=== PATIENT | male | born 1955 | race Two or more races ===

== ENCOUNTER 2025-01-02 21:21 | Inpatient (IN) | payer OTHER ==
[~2025-01-02] VITALS: Ht 182.9 cm; Wt 105.5 kg
--- NOTE | 2025-01-02 21:35 | ED.PDOC ---
Altered Mental Status HPI Comments 69-year-old male who came to ER via EMS for altered level of consciousness. Per EMS, patient picked up at home, wherein patient was noted by family members to have locked himself in the bathroom for over 3 hours. Upon arrival paramedics, patient was sitting on the toilet, slightly confused and disoriented, slightly combative when approached. Patient is febrile upon arrival to 103 F. He does have history of bladder cancer in recurrent UTIs Chief Complaint: ALOC Time Seen by MD: 21:34 Reviewed Notes: Rehabilitation Nurse Notes Allergies: Uncoded Allergies: nkda (Allergy, Unknown, 01/03/25) Information Source: Patient, Emergency Med Personnel Mode of Arrival: EMS Severity: Unable to Care for Self Timing: Hours Duration: Since onset Quality: Decreased Alertness, Change in Behavior, Confusion Recent: Fever History of: Other (Bladder Cancer) Past Medical History PAST MEDICAL HISTORY: Cancer, High Lipids, UTI'S Past Medical History (Other): Bladder cancer Surgical History (Other): Abdominal surgery, right arm surgery Family History Family History: Reviewed,noncontributory to illness Social History Smoker: Non-Smoker Alcohol: Denies ETOH Use Drugs: Denies Drug Use Lives In: Home Constitutional: denies: chills, diaphoresis, fatigue, fever, malaise, sweats, weakness, others EENTM: denies: blurred vision, double vision, ear bleeding, ear discharge, ear drainage, ear pain, ear ringing, eye pain, eye redness, hearing loss, mouth pain, mouth swelling, nasal discharge, nose bleeding, nose congestion, nose pain, photophobia, tearing, throat pain, throat swelling, voice changes, others Respiratory: denies: cough, hemoptysis, orthopnea, SOB at rest, shortness of breath, SOB with excertion, stridor, wheezing, others Cardiovascular: denies: chest pain, dizzy spells, diaphoresis, Dyspnea on exertion, edema, irregular heart beat, left arm pain, lightheadedness, palpitations, PND, syncope, others Gastrointestinal: denies: abdomen distended, abdominal pain, blood streaked bowels, constipated, diarrhea, dysphagia, difficulty swallowing, hematemesis, melena, nausea, poor appetite, poor fluid intake, rectal bleeding, rectal pain, vomiting, others Genitourinary: denies: burning, dysuria, flank pain, frequency, hematuria, incontinence, penile discharge, penile sore, pain, testicle pain, testicle swelling, urgency, others Neurological: denies: dizziness, fainting, headache, left sided numbness, left sided weakness, numbness, paresthesia, pre-existing deficit, right sided n umbness, right sided weakness, seizure, speech problems, tingling, tremors, weakness, others Musculoskeletal: denies: back pain, gout, joint pain, joint swelling, muscle pain, muscle stiffness, neck pain, others Integumetry: denies: bruises, change in color, change in hair/nails, dryness, laceration, lesions, lumps, rash, wounds, others Allergic/Immunocompromised: denies: Difficulty Healing, Frequent Infections, Hives, Itching, others Hematologic/Lymphatic: denies: anemia, blood clots, easy bleeding, easy bruising, swollen glands, others Endocrine: denies: excessive hunger, excessive sweating, excessive thirst, excessive urination, flushing, intolerance to cold, intolerance to heat, unexplained weight gain, unexplained weight loss, others Psychiatric: denies: anxiety, bipolar disorder, depression, hopeless, panic disorder, schizophrenia, sleepless, suicidal, others Unable to Obtain due to: Altered Mental Status Physical Exam General Appearance: No Apparent Distress, Normal HEENT: Normal ENT Inspection, Pharynx Normal, TMs Normal Neck: Full Range of Motion, Non-Tender, Normal, Normal Inspection Respiratory: Chest Non-Tender, Lungs Clear, No Accessory Muscle Use, No Respiratory Distress, Normal Breath Sounds Cardiovascular: No Edema, No JVD, No Murmur, No Gallop, Normal Peripheral Pulses, Regular Rate/Rhythm Breast Exam: Deferred Gastrointestinal: No Organomegaly, Non Tender, No Pulsatile Mass, Normal Bowel Sounds, Soft Genitalia: Deferred Pelvic: Deferred Rectal: Deferred Extremities: No calf tenderness, Normal capillary refill, Normal inspection, Normal range of motion, Non-tender, No pedal edema Musculoskeletal : Apperance: Normal Neurologic: Alert, fund accountant II-XII nml as Tested, No Motor Deficits, Normal Affect, Normal Mood, No Sensory Deficits Cerebellar Function: Normal Reflexes: Normal Skin: Dry, Normal Color, Warm Lymphatic: No Adenopathy Was a procedure done? Was a procedure done?: No Differential Diagnosis (ALOC) Differential Diagnosis: Dehydration, Hypoglycemia, Encephalopathy, Sepsis, Hypoxemia, Renal Failure X-Ray, Labs, Meds, VS Vital Signs Date Time Temp Pulse Resp B/P (MAP) Pulse Ox O2 Delivery O2 Flow Rate FiO2 01/03/25 01:38 98.2 96 20 97/68 (78) 98 98.2 01/03/25 00:45 88 20 120/88 01/02/25 22:35 101.4 101.4 01/02/25 22:29 98.1 73 20 136/77 (96) 96 98.1 01/02/25 22:16 117 20 91 Nasal Cannula* 2 28 01/02/25 22:16 98.1 118 20 109/68 (82) 93 98.1 01/02/25 22:10 119 01/02/25 21:30 103.1 121 20 123/65 94 103.1 Lab Test 01/03/25 00:44 01/03/25 00:10 01/02/25 23:40 01/02/25 22:40 Range/Units Lactic Acid Level 2.2 *H 2.8 *H 0.4-2.0 mmol/L Influenza Type A Antigen Negative Negative Influenza Type B Antigen Negative Negative SARS-CoV-2 Antigen (Rapid) Negative NEGATIVE Troponin I High Sensitivity 33 18 </=54 ng/L White Blood Count 16.5 H 4.4-10.8 10^3/uL Red Blood Count 4.85 4.5-5.90 10^6/uL Hemoglobin 13.3 L 13.5-17.5 g/dL Hematocrit 41.7 41.0-53.0 % Mean Corpuscular Volume 85.9 80.0-100.0 fL Mean Corpuscular Hemoglobin 27.4 L 28.0-32.0 pg Mean Corpuscular Hemoglobin Concent 31.9 L 32.0-36.0 g/dL Red Cell Distribution Width 17.2 H 11.8-14.3 % Platelet Count 264 140-450 10^3/uL Mean Platelet Volume 8.7 6.9-10.8 fL Neutrophils (%) (Auto) 95.0 H 37.0-80.0 % Lymphocytes (%) (Auto) 1.4 L 10.0-50.0 % Monocytes (%) (Auto) 3.5 0.0-12.0 % Eosinophils (%) (Auto) 0.0 0.0-7.0 % Basophils (%) (Auto) 0.1 0.0-2.0 % Neutrophils # (Auto) 15.6 H 1.6-8.6 10 ^3/uL Lymphocytes # (Auto) 0.2 L 0.4-5.4 10 ^3/uL Monocytes # (Auto) 0.6 0-1.3 10 ^3/uL Eosinophils # (Auto) 0 0-0.8 10 ^3/uL Basophils # (Auto) 0 0-0.2 10 ^3/uL Nucleated Red Blood Cells 0.0 % Prothrombin Time 10.6 9.3-11.8 sec Prothrombin Time INR 1.00 0.9-1.15 Activated Partial Thromboplast Time 30.1 24.5-34.5 SEC Sodium Level 138 136-145 mmol/L Potassium Level 3.3 L 3.5-5.1 mmol/L Chloride Level 113 H 98-107 mmol/L Carbon Dioxide Level 16 L 20-31 mmol/L Anion Gap 9 5-15 Blood Urea Nitrogen 28 H 9-23 mg/dL Creatinine 2.62 H 0.700-1.30 mg/dL Glomerular Filtration Rate Calc 25 >90 mL/min BUN/Creatinine Ratio 10.7 10.0-20.0 Serum Glucose 114 H 74-106 mg/dL Calcium Level 8.6 L 8.7-10.4 mg/dL Total Bilirubin 1.2 H 0.2-1.0 mg/dL Aspartate Amino Transferase (AST) 267 H 13-40 U/L Alanine Aminotransferase (ALT) 205 H 7-40 U/L Alkaline Phosphatase 512 H 46-116 U/L Total Protein 6.7 5.7-8.2 g/dL Albumin 3.7 3.2-4.8 g/dL Test 01/02/25 22:16 Range/Units POC Glucose 127 H 70-106 mg/dl Current Medications Medications (Trade) Dose Ordered Sig/Anabelle Route Start Time Stop Time Status Last Admin Acetaminophen (Ofirmev) 1,000 mg ONCE ONCE IV 01/02/25 21:45 01/02/25 21:46 DC 01/02/25 21:45 Piperacillin Sod/ Tazobactam Sod 100 ml @ 100 mls/hr ONCE ONCE IV 01/02/25 21:45 01/02/25 22:44 DC 01/02/25 21:45 Sodium Chloride 1,000 ml @ 1,000 mls/hr Q1H ONCE IV 01/02/25 21:45 01/02/25 22:44 DC 01/02/25 21:45 Morphine Sulfate 4 mg ONCE ONCE IV 01/03/25 00:45 01/03/25 00:49 DC 01/03/25 00:45 Time of 1ST Reevaluation: 21:31 Reevaluation 1ST: Unchanged Patient Education/Counseling: Diagnosis, Treatment Family Education/Counseling: No Family Present SEPSIS Sepsis Screen Physician Orders Urinalysis (01/02/25 21:28) Chest Portable (01/02/25 21:28) Blood Culture (01/02/25 21:28) Sepsis Initial Assessment ONCE (01/02/25 21:28) Sepsis Reassessment After Flui (01/02/25 21:29) Initiate Sepsis Protocol (01/02/25 21:28) Troponin-I Hs (01/03/25 03:28) Electrocardigram (01/02/25 22:41) Ct Ab Pel Wo Con-No Oral Or Iv (01/02/25 21:28) Insert/Manage Urinary Catheter QSHIFT (01/03/25 00:40) Vital Signs Date Time Temp Pulse Resp B/P (MAP) Pulse Ox O2 Delivery O2 Flow Rate FiO2 01/03/25 01:38 98.2 96 20 97/68 (78) 98 98.2 01/03/25 00:45 88 20 120/88 01/02/25 22:35 101.4 101.4 01/02/25 22:29 98.1 73 20 136/77 (96) 96 98.1 01/02/25 22:16 117 20 91 Nasal Cannula* 2 28 01/02/25 22:16 98.1 118 20 109/68 (82) 93 98.1 01/02/25 22:10 119 01/02/25 21:30 103.1 121 20 123/65 94 103.1 Laboratory Tests Test 01/02/25 22:40 01/03/25 00:44 Lactic Acid Level 2.8 mmol/L (0.4-2.0) *H 2.2 mmol/L (0.4-2.0) *H White Blood Count 16.5 10^3/uL (4.4-10.8) H Medications Medications Dose Ordered Sig/Anabelle Route Start Time Stop Time Status Last Admin Dose Admin Acetaminophen 1,000 mg ONCE ONCE IV 01/02/25 21:45 01/02/25 21:46 DC 01/02/25 21:45 Morphine Sulfate 4 mg ONCE ONCE IV 01/03/25 00:45 01/03/25 00:49 DC 01/03/25 00:45 Piperacillin Sod/ Tazobactam Sod 100 ml @ 100 mls/hr ONCE ONCE IV 01/02/25 21:45 01/02/25 22:44 DC 01/02/25 21:45 Sodium Chloride 1,000 ml @ 1,000 mls/hr Q1H ONCE IV 01/02/25 21:45 01/02/25 22:44 DC 01/02/25 21:45 Departure 1 Departure Time of Disposition: 01:44 Impression: Primary Impression: Altered mental status Additional Impressions: Metabolic encephalopathy UTI (urinary tract infection) Choledocholithiasis Disposition: ADMITTED INPATIENT Admit to: Med Surg Condition: Guarded Discharged With: Self Comments 69-year-old male is complaining of generalized weakness and some confusion at home. His white blood cell count is elevated at 16.5. CT of the abdomen and pelvis shows choledocholithiasis. Lactate was elevated 3.2. Patient was given IV fluids and IV Zosyn antibiotics. I suspect UTI and choledocholithiasis. Patient will need admission for IV antibiotics and supportive care Critical Care Note Critical Care Time?: Yes (35 min-critical care time only) Critical care comment: Total critical care time: Approximately 36 minutes Due to a high probability of clinically significant, life threatening deterioration, the patient required my highest level of preparedness to intervene emergently and I personally spent this critical care time directly and personally managing the patient. This critical care time included obtaining a history; examining the patient; pulse oximetry; ordering and review of studies; arranging urgent treatment with development of a management plan; evaluation of patient's response to treatment; frequent reassessment; and, discussions with other providers. This critical care time was performed to assess and manage the high probability of imminent, life-threatening deterioration that could result in multi-organ failure. It was exclusive of separately billable procedures and treating other patients. Stability Stability form required: No Heart Score Heart Score: Heart Score Response (Comments) Value History N/A 0 EKG N/A 0 Age N/A 0 Risk Factors N/A 0 Troponin N/A 0 Total 0 I personally scribed for PIERRE SPENCE MD ([email or web address]) on 01/02/25 at 21:35. Electronically submitted by Anival Quiñones ([email or web address]). PIERRE SPENCE MD Jan 02, 2025 21:35
[2025-01-02] MEDS: SODIUM CHLORIDE 0.9% 1,000 ML IV ONE (21:45)
[2025-01-02] MEDS: ACETAMINOPHEN IV 1000 MG/100ML (10MG/ML) IV ONE (21:45)
[2025-01-02] MEDS: PIPERACILLIN-TAZOB 3.375GM 100 ML IV ONE (21:45)
[2025-01-02 22:16] VITALS: PULSE 117; RESP 20; O2SAT 91
[2025-01-02 22:53] LABS: Hematocrit 41.7 % (41.0-53.0); Hemoglobin 13.3 g/dL (13.5-17.5); Mean Corpuscular Hemoglobin 27.4 pg (28.0-32.0); Mean Corpuscular Volume 85.9 fL (80.0-100.0); Nucleated Red Blood Cells % 0.0 %
[2025-01-02 23:14] LABS: Albumin 3.7 g/dL (3.2-4.8); Anion Gap 9 (5-15); BUN/Creatinine Ratio 10.7 (10.0-20.0); Sodium 138 mmol/L (136-145); Total Protein 6.7 g/dL (5.7-8.2)
[2025-01-02 23:16] LABS: INR 1.0 (0.9-1.15); Partial Thromboplastin Time 30.1 SEC (24.5-34.5); Prothrombin Time 10.6 sec (9.3-11.8)
[2025-01-02 23:20] LABS: Alanine Aminotransferase 205 U/L (7-40); Alkaline Phosphatase 512 U/L (46-116); Bilirubin, Total 1.2 mg/dL (0.2-1.0); Blood Urea Nitrogen 28 mg/dL (9-23); Calcium 8.6 mg/dL (8.7-10.4); Carbon Dioxide 16 mmol/L (20-31); Chloride 113 mmol/L (98-107); Glucose 114 mg/dL (74-106); Potassium 3.3 mmol/L (3.5-5.1)
[2025-01-02 23:25] LABS: Lactic Acid w/Reflex 2.8 mmol/L (0.4-2.0)
[2025-01-03] VITALS (7 sets, daily range): BP systolic 92–112; BP diastolic 54–87; PULSE 71–81; RESP 18–20; TEMP 96.8–98.6; O2SAT 96–99
--- NOTE | 2025-01-03 00:14 | DVH ---
EXAM: XY CHEST PORTABLE CLINICAL HISTORY: cough, fever TECHNIQUE: Single AP view of the chest WID: COMPARISON: None FINDINGS: Lines and tubes: None Chest: The heart size and pulmonary vasculature is within normal limits. Linear bibasilar opacities likely scarring or atelectasis. The lung apices are not entirely included in the field of view. No pneumothorax The osseous structures are grossly intact. IMPRESSION: No acute cardiopulmonary abnormality.
[2025-01-03] MEDS: MORPHINE SULFATE 4 MG/ML SYR/VIAL IV ONE (00:45)
[2025-01-03 01:17] LABS: COVID19 ANTIGEN SOFIA FIA NEGATIVE (NEGATIVE)
--- NOTE | 2025-01-03 01:29 | DVH ---
CLINICAL HISTORY: fever , pain TECHNIQUE: CT of the abdomen and pelvis was performed without intravenous contrast. This exam was per formed according to our departmental dose optimization program. Up-to-date CT equipment and radiation dose reduction techniques are utilized as appropriate. 22.7 CTDI: 22.7 DLP: 1510.84 WID: COMPARISON: None FINDINGS: Lower Thorax: Linear bibasilar scarring and/or atelectasis. Normal-sized heart. Partially imaged mod erate coronary artery calcifications and mild aortic valve calcifications. Liver and Biliary system: Hepatomegaly measuring 22 cm craniocaudal. Slight limited evaluation of the liver due to streak artifact. No definite hepatic lesion. Gallbladder is mildly dilated though witho ut definite wall thickening. Cholelithiasis. There is choledocholithiasis with a calculus in the dist al common bile duct measuring 8.6 mm on series 2, image 51. Dilatation of the common bile duct measur ing 1.3 cm. Spleen: Unremarkable. Adrenal Glands and Kidneys: Perinephric soft tissue stranding. There is bilateral urothelial thicken ing. Mild bilateral pelvicaliectasis. Bilateral renal cortical scarring. There are bilateral renal h ypodensities not optimally evaluated without contrast though may reflect cysts. Pancreas and Retroperitoneum: Tiny calcification in the body of the pancreas. Otherwise grossly norm al pancreas. Mildly prominent gastrohepatic ligament lymph nodes. No retroperitoneal lymphadenopathy. Prior retroperitoneal lymph node dissection. Aorta and Major Vessels: Aortoiliac vessels are normal in caliber containing mild calcified atheroscl erotic plaque. Bowel, Mesentery and Peritoneal space: Normal caliber small and large bowel. Normal appendix. There i s no free intraperitoneal air or fluid collection. There is small bowel anastomosis in the lower ant erior abdomen. Pelvis: Urinary bladder is mildly distended. There is no pelvic lymphadenopathy. There is bilateral pelvic lymph node dissection. Probable prior prostatectomy. Abdominal wall and Osseous Structures: Tiny fat containing bilateral inguinal hernias and small fat c ontaining umbilical hernia. No destructive osseous lesion. IMPRESSION: There is a 9 mm calculus in the distal common bile duct (choledocholithiasis) with mild dilatation of the common bile duct. This is suggesting biliary obstruction. Correlate with lFTs. Mild dilatation of the gallbladder containing cholelithiasis. No definite gallbladder wall thickening . Perinephric soft tissue stranding, mild bilateral pelvicaliectasis and bilateral urothelial thickenin g. Correlate with urinalysis to assess for urinary tract infection. No obstructing renal calculus. Small bowel anastomosis in the anterior lower abdomen. Prior prostatectomy and bilateral pelvic and retroperitoneal lymph node dissection. Mild hepatomegaly.
[2025-01-03] MEDS: SODIUM CHLORIDE 0.9% 1,000 ML IV ONE (02:30)
--- NOTE | 2025-01-03 02:30 | DVHHPRES ---
History of Present Illness Resident Creating Document: KAREN JUDD RESIDENT History of Present Illness Patient is a 69-year-old male with a past medical history of hypertension, coronary artery disease, AL s/p PCI in 2013, hyperlipidemia, heart failure with reduced ejection fraction, COPD, bladder carcinoma status post surgical i ntervention, CKD stage III-IV was brought to the ED after being found altered and combative in the bathroom for over 3 hours. Patient is AO x2, poor historian, forgetful and unsure why he is in the hospital. On review of systems patient is complaining of chills and constipation. On arrival to the ER patient was noted to have a fever of 103.1, heart rate 121 and a blood pressure of 123/65. CT abdomen pelvis showed 9 mm calculus in distal CBD with mild dilation of CBD. Patient was given IV fluids, started on IV Zosyn, surgical consult was placed. Past Medical History hypertension, coronary artery disease, AL s/p PCI in 2013, hyperlipidemia, heart failure with reduced ejection fraction, COPD, bladder carcinoma status post surgical intervention, CKD stage III-IV Past Surgical History PTCA in 2013, bladder surgery for bladder carcinoma, history of abdominal surgery due to trauma Past Social History Smokin cigarettes per day for many years Alcohol: Denies Drugs: Denies, remote history of heroin abuse Lives with daughter Review of Systems Review of Systems Patient is altered so an accurate review of systems could not be completed, however, patient does note chills and constipation. Constitutional: Yes: Fever, Chills; No: Sweats, Weakness, Malaise, Other Eyes: No: Pain, Vision change, Conjunctivae inflammation, Eyelid inflammation, Other, Redness ENT: No: Ear pain, Ear discharge, Nose pain, Nose discharge, Nose congestion, Mouth pain, Mouth swelling, Throat pain, Throat swelling, Other Respiratory: No: Cough, Dry, Shortness of breath, SOB with excertion, Wheezing, Hemoptysis, Pleuritic Pain, Sputum, Wheezing, Other Cardiovascular: No: Chest Pain, Palpitations, Orthopnea, Paroxysmal Noc. Dyspnea, Edema, Lt Headedness, Other Gastrointestinal: Constipation; No: Nausea, Vomiting, Abdominal Pain, Diarrhea, Melena, Hematochezia, Other Genitourinary: No Dysuria, No Frequency, No Incontinence, No Hematuria, No Retention, No Other Musculoskeletal: No: other, neck pain, shoulder pain, arm pain, back pain, hand pain, leg pain, foot pain Skin: No: Rash, Lesions, Jaundice, Bruising, Other Neurological: No: Weakness, Numbness, Incoordination, Change in speech, Confusion, Seizures, Other Allergies: Uncoded Allergies: nkda (Allergy, Unknown, 01/03/25) Exam Vital Signs Vital Signs Date Time Temp Pulse Resp B/P (MAP) Pulse Ox O2 Delivery O2 Flow Rate FiO2 01/03/25 01:38 98.2 96 20 97/68 (78) 98 98.2 01/02/25 22:16 Nasal Cannula* 2 28 General Appearance: moderate distress, Other (AO x2) HEENT: Atraumatic, PERRLA, EOMI, Other (Dry mucous membranes) Respiratory: Normal air movement Cardiovascular: Normal S1, Normal S2, Other (Tachycardic) Abdominal: Normal bowel sounds, Other (Right upper quadrant tenderness to palpation) Extremities: No edema, Normal pulses Skin: No rashes Neuro: Normal speech Labs/Xrays Labs Test 01/03/25 00:44 01/03/25 00:10 01/02/25 23:40 01/02/25 22:40 Range/Units Lactic Acid Level 2.2 *H 0.4-2.0 mmol/L Influenza Type A Antigen Negative Negative Influenza Type B Antigen Negative Negative SARS-CoV-2 Antigen (Rapid) Negative NEGATIVE Troponin I High Sensitivity 33 </=54 ng/L White Blood Count 16.5 H 4.4-10.8 10^3/uL Red Blood Count 4.85 4.5-5.90 10^6/uL Hemoglobin 13.3 L 13.5-17.5 g/dL Hematocrit 41.7 41.0-53.0 % Mean Corpuscular Volume 85.9 80.0-100.0 fL Mean Corpuscular Hemoglobin 27.4 L 28.0-32.0 pg Mean Corpuscular Hemoglobin Concent 31.9 L 32.0-36.0 g/dL Red Cell Distribution Width 17.2 H 11.8-14.3 % Platelet Count 264 140-450 10^3/uL Mean Platelet Volume 8.7 6.9-10.8 fL Neutrophils (%) (Auto) 95.0 H 37.0-80.0 % Lymphocytes (%) (Auto) 1.4 L 10.0-50.0 % Monocytes (%) (Auto) 3.5 0.0-12.0 % Eosinophils (%) (Auto) 0.0 0.0-7.0 % Basophils (%) (Auto) 0.1 0.0-2.0 % Neutrophils # (Auto) 15.6 H 1.6-8.6 10 ^3/uL Lymphocytes # (Auto) 0.2 L 0.4-5.4 10 ^3/uL Monocytes # (Auto) 0.6 0-1.3 10 ^3/uL Eosinophils # (Auto) 0 0-0.8 10 ^3/uL Basophils # (Auto) 0 0-0.2 10 ^3/uL Nucleated Red Blood Cells 0.0 % Prothrombin Time 10.6 9.3-11.8 sec Prothrombin Time INR 1.00 0.9-1.15 Activated Partial Thromboplast Time 30.1 24.5-34.5 SEC Sodium Level 138 136-145 mmol/L Potassium Level 3.3 L 3.5-5.1 mmol/L Chloride Level 113 H 98-107 mmol/L Carbon Dioxide Level 16 L 20-31 mmol/L Anion Gap 9 5-15 Blood Urea Nitrogen 28 H 9-23 mg/dL Creatinine 2.62 H 0.700-1.30 mg/dL Glomerular Filtration Rate Calc 25 >90 mL/min BUN/Creatinine Ratio 10.7 10.0-20.0 Serum Glucose 114 H 74-106 mg/dL Calcium Level 8.6 L 8.7-10.4 mg/dL Total Bilirubin 1.2 H 0.2-1.0 mg/dL Aspartate Amino Transferase (AST) 267 H 13-40 U/L Alanine Aminotransferase (ALT) 205 H 7-40 U/L Alkaline Phosphatase 512 H 46-116 U/L Total Protein 6.7 5.7-8.2 g/dL Albumin 3.7 3.2-4.8 g/dL Test 01/02/25 22:16 Range/Units POC Glucose 127 H 70-106 mg/dl SEPSIS Sepsis Screen Date sepsis recognized/suspect: Jan 02, 2025 Time Sepsis recognized/suspect: 2222 Recent Procedure: No On Antibiotic Therapy: No Respiratory Rate >20: No Heart Rate >90: Yes Temp<36 C (96.8 F) or >38.3 C: No SBP <90 or MAP <65 mmHG: No New Acute Mental Status Change: No Is the patient on CPAP, BIPAP,: No Physician Orders Urinalysis (01/02/25 21:28) Chest Portable (01/02/25:28) Blood Culture (01/02/25:) Sepsis Initial Assessment ONCE (01/02/25 21:28) Sepsis Reassessment After Flui (01/02/25 21:29) Initiate Sepsis Protocol (01/02/25 21:28) Troponin-I Hs (01/03/25 03:28) Electrocardigram (01/02/25 22:41) Ct Ab Pel Wo Con-No Oral Or Iv (01/02/25:) Insert/Manage Urinary Catheter QSHIFT (01/03/25 00:40) Admit (01/03/25 02:21) Code Status (01/03/25 02:21) Vital Signs .PER UNIT PROTOCOL (01/03/25 02:21) Review Orders With Adm.Md (01/03/25 02:21) Npo (Nothing By Mouth) Diet (01/03/25 Breakfast) Notify Md Of Changes From Base (01/03/25 02:21) Advance Directive (01/03/25 02:21) Patient Condition (01/03/25 02:21) Allergies (01/03/25 02:21) Notify Md Of Changes From Base (01/03/25 02:21) Zosyn Extended Infusion (01/03/25 06:00) Abdomen Complete Sonogram (01/03/25 02:21) NS (01/03/25 02:30) Potassium Chl Myke Kcl (01/03/25 02:30) Complete Blood Count (01/04/25 04:00) Comprehensive Metabolic Panel (01/04/25 04:00) Urinalysis (01/03/25 02:21) Blood Culture (01/03/25 02:21) Urine Bacterial Culture (01/03/25 02:21) Vital Signs Date Time Temp Pulse Resp B/P (MAP) Pulse Ox O2 Delivery O2 Flow Rate FiO2 01/03/25 01:38 98.2 96 20 97/68 (78) 98 98.2 01/03/25 01:15 78 20 109/78 01/03/25 00:45 88 20 120/88 01/02/25 22:35 101.4 101.4 01/02/25 22:29 98.1 73 20 136/77 (96) 96 98.1 01/02/25 22:16 117 20 91 Nasal Cannula* 2 28 01/02/25 22:16 98.1 118 20 109/68 (82) 93 98.1 01/02/25 22:10 119 01/02/25 21:30 103.1 121 20 123/65 94 103.1 Laboratory Tests Test 01/02/25 22:40 01/03/25 00:44 Lactic Acid Level 2.8 mmol/L (0.4-2.0) *H 2.2 mmol/L (0.4-2.0) *H White Blood Count 16.5 10^3/uL (4.4-10.8) H Medications Medications Dose Ordered Sig/Anabelle Route Start Time Stop Time Status Last Admin Dose Admin Acetaminophen 1,000 mg ONCE ONCE IV 01/02/25 21:45 01/02/25 21:46 DC 01/02/25 21:45 1,000 MG Morphine Sulfate 4 mg ONCE ONCE IV 01/03/25 00:45 01/03/25 00:49 DC 01/03/25 00:45 4 MG Piperacillin Sod/ Tazobactam Sod 100 ml @ 100 mls/hr ONCE ONCE IV 01/02/25 21:45 01/02/25 22:44 DC 01/02/25 21:45 100 MLS/HR Sodium Chloride 1,000 ml @ 1,000 mls/hr Q1H ONCE IV 01/02/25 21:45 01/02/25 22:44 DC 01/02/25 21:45 1,000 MLS/HR Assessment/Plan Assessment/Plan Acute toxic vs metabolic encephalopathy Possible acute cholecystitis Choledocholithiasis Acute cholangitis can not be ruled out Sepsis due to above Lactic acidosis Acute complicated UTI - CT abdomen pelvis: There is a 9 mm calculus in the distal common bile duct (choledocholithiasis) with mild dilatation of the common bile duct. This is suggesting biliary obstruction. Correlate with lFTs. Mild dilatation of the gallbladder containing cholelithiasis. No definite gallbladder wall thickening. Perinephric soft tissue stranding, mild bilateral pelvicaliectasis and bilateral urothelial thickening. Correlate with urinalysis to assess for urinary tract infection. No obstructing renal calculus. Small bowel anastomosis in the anterior lower abdomen. Prior prostatectomy and bilateral pelvic and retroperitoneal lymph node dissection. Mild hepatomegaly. - CXR: No acute cardiopulmonary disease - IV NS 1 L bolus, IV NS at 100 cc per hour - IV Zosyn - surgical consult - social service consult - NPO - ordered blood culture, urine culture Hyperbilirubinemia Transaminitis - ordered abdominal ultrasound - monitor Hypokalemia - IV potassium 20 mEq once Chronic heart failure with reduced ejection fraction Ischemic cardiomyopathy s/p AL with PCI - echocardiogram from August 2024: TDS. Limited views. Normal LV size with moderately reduced systolic function. LVEF 35-40%. [id number] anteroseptal and apical hypokinesis, with basal segment hyperkinesis. No pericardial effusion - resumed home medication aspirin 81 mg - resumed home medication atorvastatin 40 mg - holding home medication Entresto and Jardiance owing to soft blood pressure and sepsis ALEXANDRE likely hemodynamically mediated/VMN on probable CKD stage 3-4 Anemia likely of chronic disease History of bladder cancer s/p surgical intervention History of a right-sided renal mass - renal ultrasound from September 2024: Right kidney measures 10.88 cm. Left kidney measures 10.46 cm. Increased echogenicity of the renal cortex bilaterally. Multiple anechoic masses in the cortex of both kidneys largest on the right measures 3.2 by 2.9 cm. Largest on the left measures 2.45 x 2.26 cm. Nichols catheter in the bladder in the bladder is empty. - monitor History of depression, likely MDD - resumed home medication bupropion 150 mg b.i.d. DVT prophylaxis: Heparin 5000 units b.i.d. Goals of care: Full code; attempted to call daughter at [phone] around 2:58 a.m. however no response, we will re-attempt to call in the morning. Plan discussed with Dr. Tony Plan discussed with: Patient, Other (RN) My Orders Orders - KAREN JUDD RESIDENT Procedure Category Date Status Time Admit ADMIT 01/03/25 Transmitted 02:21 Code Status CODE 01/03/25 Transmitted 02:21 Vital Signs FANI 01/03/25 In Process 02:21 Review Orders With FANI 01/03/25 In Process Adm. 02:21 Npo (Nothing By DIET 01/03/25 Transmitted Mouth) Diet Breakfast Notify Md Of Changes FANI 01/03/25 Transmitted From Base 02:21 Advance Directive FANI 01/03/25 Transmitted 02:21 Patient Condition ORDERS 01/03/25 Transmitted 02:21 Allergies FANI 01/03/25 Transmitted 02:21 Notify Md Of Changes FANI 01/03/25 Transmitted From Base 02:21 Zosyn Extended PHA 01/03/25 Transmitted Infusion 06:00 Abdomen Complete US 01/03/25 Logged Sonogram 02:21 NS PHA 01/03/25 Transmitted 02:30 Potassium Chl Myke PHA 01/03/25 Transmitted KCL 02:30 Complete Blood Count LAB 01/04/25 Verified 04:00 Comprehensive LAB 01/04/25 Verified Metabolic Panel 04:00 Urinalysis LAB 01/03/25 Transmitted 02:21 Blood Culture ELENA 01/03/25 Transmitted 02:21 Urine Bacterial ELENA 01/03/25 Transmitted Culture 02:21 Date of Service: Jan 03, 2025 Billing Provider: VALENTINO TONY MD Common Visit Codes: 64317-[id number] INP/OBS CARE (HIGH) Secondary Visit Codes: 30150-[id number] CARE PLAN 30 MINUTES KAREN JUDD Jan 03, 2025 02:30
[2025-01-03 03:29] LABS: Urine Protein, UAD 1+ (Negative)
[2025-01-03] MEDS ORDERED: ASPI-325 PO (04:11)
[2025-01-03] MEDS ORDERED: ERGO1CAP12 PO (04:11)
[2025-01-03] MEDS ORDERED: EMPA1TAB PO (04:11)
[2025-01-03] MEDS ORDERED: ATOR40TA52 PO (04:11)
[2025-01-03] MEDS ORDERED: BUPR150T18 PO (04:11)
[2025-01-03] MEDS: POTASSIUM CHL 20MEQ/100ML 100 ML IV ONE (06:00)
[2025-01-03] MEDS: PIPERACILLIN-TAZOB 3.375GM 100 ML IV SCH (06:00)
--- NOTE | 2025-01-03 09:19 | DVH ---
Technique: Real-time ultrasound imaging of the abdomen was performed with grayscale and color Doppler . Indication: Evaluate for cholecystitis Comparison: None Findings: Liver measures 19. cm. It is increased in echogenicity and echotexture without focal mass. Portal ve in is normal in caliber and demonstrates normal hepatopetal flow. Gallbladder demonstrates cholelithiasis. There is no pericholecystic fluid. The wall thickness is 4 m m. The common bile duct measures 4 mm. No intrahepatic biliary ductal dilatation. The right kidney measures 10.6 cm. The left kidney measures 10.3 cm. No hydronephrosis or sonographic evidence of nephrolithiasis. The visualized portion of the pancreas is unremarkable. Spleen measures 11.4 cm. The visualized portion of the IVC is unremarkable. Impression: Cholelithiasis and mild gallbladder wall thickening which can be seen with cholecystitis. Recommend H YRN scan to further evaluate. Echogenic liver which can be seen with hepatic steatosis, cirrhosis. Hepatomegaly
[2025-01-03] MEDS: HEPARIN SODIUM (PORCINE) 5000 UNITS/ML 1ML VIAL SC SCH (09:59)
--- NOTE | 2025-01-03 10:01 | DVHINCON2 ---
Date of service: Jan 03, 2025 Allergies: Uncoded Allergies: nkda (Allergy, Unknown, 01/03/25) Home Meds Reported Medications Empagliflozin (Jardiance) 10 Mg Tab, 1 TAB PO DAILY 01/03/25 Ergocalciferol (Vitamin D) 50,000 Unit Cap, 1 CAP PO QWEEKLY 01/03/25 Aspirin (Aspirin Low Dose) 81 Mg Tab, 1 TAB PO DAILY 01/03/25 Bupropion Hcl (Bupropion Hcl Xl) 150 Mg Tab, 1 TAB PO BID 01/03/25 Atorvastatin Calcium (ATORVASTATIN CALCIUM) 40 Mg Tab, 1 TAB PO DAILY 01/03/25 Current Medications Current Medications Medications (Trade) Dose Ordered Sig/Anabelle Route PRN Reason Start Time Stop Time Status Last Admin Piperacillin Sod/ Tazobactam Sod 100 ml @ 25 mls/hr Q8HR IV 01/03/25 06:00 Heparin Sodium (Porcine) 5,000 units Q12HR SC 01/03/25 10:00 Aspirin 81 mg DAILY PO 01/03/25 10:00 Atorvastatin Calcium (Lipitor) 40 mg HS PO 01/03/25 22:00 Bupropion HCl (Wellbutrin Tablet) 150 mg BID@07,19 PO 01/03/25 22:00 Vital Signs Vital Signs Date Time Temp Pulse Resp B/P (MAP) Pulse Ox O2 Delivery O2 Flow Rate FiO2 01/03/25 05:00 96.8 81 18 100/68 (79) 96 96.8 01/03/25 03:57 Nasal Cannula* 2 28 Labs/Diagnostic Data Labs Test 01/03/25 02:21 01/03/25 00:44 01/03/25 00:10 01/02/25 23:40 Range/Units Urine Color Yellow Yellow Urine Clarity Turbid H Clear Urine pH 7.0 5.0-9.0 Urine Specific [place] 1.010 1.001-1.035 Urine Protein 1+ H Negative Urine Ketones Negative Negative Urine Blood 3+ H Negative /uL Urine Nitrite Negative Negative Urine Bilirubin Negative Negative Urine Urobilinogen Normal Negative mg/dL Urine Leukocyte Esterase 3+ Negative /uL Urine RBC 6 0 - 3 /hpf Urine Microscopic WBC 80 H 0-3 /HPF Urine Squamous Epithelial Cells Few <5 /hpf Urine Bacteria Few H None Seen /hpf Urine Glucose Normal Normal mg/dL Lactic Acid Level 2.2 *H 0.4-2.0 mmol/L Influenza Type A Antigen Negative Negative Influenza Type B Antigen Negative Negative SARS-CoV-2 Antigen (Rapid) Negative NEGATIVE Troponin I High Sensitivity 33 </=54 ng/L Test 01/02/25 22:40 01/02/25 22:16 Range/Units White Blood Count 16.5 H 4.4-10.8 10^3/uL Red Blood Count 4.85 4.5-5.90 10^6/uL Hemoglobin 13.3 L 13.5-17.5 g/dL Hematocrit 41.7 41.0-53.0 % Mean Corpuscular Volume 85.9 80.0-100.0 fL Mean Corpuscular Hemoglobin 27.4 L 28.0-32.0 pg Mean Corpuscular Hemoglobin Concent 31.9 L 32.0-36.0 g/dL Red Cell Distribution Width 17.2 H 11.8-14.3 % Platelet Count 264 140-450 10^3/uL Mean Platelet Volume 8.7 6.9-10.8 fL Neutrophils (%) (Auto) 95.0 H 37.0-80.0 % Lymphocytes (%) (Auto) 1.4 L 10.0-50.0 % Monocytes (%) (Auto) 3.5 0.0-12.0 % Eosinophils (%) (Auto) 0.0 0.0-7.0 % Basophils (%) (Auto) 0.1 0.0-2.0 % Neutrophils # (Auto) 15.6 H 1.6-8.6 10 ^3/uL Lymphocytes # (Auto) 0.2 L 0.4-5.4 10 ^3/uL Monocytes # (Auto) 0.6 0-1.3 10 ^3/uL Eosinophils # (Auto) 0 0-0.8 10 ^3/uL Basophils # (Auto) 0 0-0.2 10 ^3/uL Nucleated Red Blood Cells 0.0 % Prothrombin Time 10.6 9.3-11.8 sec Prothrombin Time INR 1.00 0.9-1.15 Activated Partial Thromboplast Time 30.1 24.5-34.5 SEC Sodium Level 138 136-145 mmol/L Potassium Level 3.3 L 3.5-5.1 mmol/L Chloride Level 113 H 98-107 mmol/L Carbon Dioxide Level 16 L 20-31 mmol/L Anion Gap 9 5-15 Blood Urea Nitrogen 28 H 9-23 mg/dL Creatinine 2.62 H 0.700-1.30 mg/dL Glomerular Filtration Rate Calc 25 >90 mL/min BUN/Creatinine Ratio 10.7 10.0-20.0 Serum Glucose 114 H 74-106 mg/dL Calcium Level 8.6 L 8.7-10.4 mg/dL Total Bilirubin 1.2 H 0.2-1.0 mg/dL Aspartate Amino Transferase (AST) 267 H 13-40 U/L Alanine Aminotransferase (ALT) 205 H 7-40 U/L Alkaline Phosphatase 512 H 46-116 U/L Total Protein 6.7 5.7-8.2 g/dL Albumin 3.7 3.2-4.8 g/dL POC Glucose 127 H 70-106 mg/dl Assessment 69 YEAR OLD MALE WITH RIGHT UPPER ABDOMINAL PAIN, CT SCAN SHOWS STONE IN THE COMMON DUCT, HE NEEDS ERCP FOR WHICH HE WILL NEED TO BE TRANSFERRED TO A FACILITY WHERE IT IS AVAILABLE. HIS WBC IS ELEVATED WITH LEFT SHIFT, HIS LFT'S ARE ELEVATED, RECOMMEND PROMPT TRANSFER TO AVOID SEPTIC COMPLICATIONS, RIGHT NOW THERE IS NO INDICATION FOR EMERGENCY SURGICAL INTERVENTION, Plan discussed with: Patient PETRONA PERAZA MD Jan 03, 2025 10:01
--- NOTE | 2025-01-03 14:04 | DVHDSRES ---
Discharge Summary Date of Admission Resident Creating Document: TEDDY WALTERS RESIDENT Jan 03, 2025 at 02:21 Date of Discharge: Jan 03, 2025 Admitting Diagnosis Sepsis due to acute cholecystitis Labs/Diagnostic Data: Laboratory Results Test 01/03/25 02:21 01/03/25 00:44 01/03/25 00:10 01/02/25 23:40 Urine Color Yellow (Yellow) Urine Clarity Turbid (Clear) Urine pH 7.0 (5.0-9.0) Urine Specific [place] 1.010 (1.001-1.035) Urine Protein 1+ (Negative) Urine Ketones Negative (Negative) Urine Blood 3+ /uL (Negative) Urine Nitrite Negative (Negative) Urine Bilirubin Negative (Negative) Urine Urobilinogen Normal mg/dL (Negative) Urine Leukocyte Esterase 3+ /uL (Negative) Urine RBC 6 /hpf (0 - 3) Urine Microscopic WBC 80 /HPF (0-3) Urine Squamous Epithelial Cells Few /hpf (<5) Urine Bacteria Few /hpf (None Seen) Urine Glucose Normal mg/dL (Normal) Lactic Acid Level 2.2 mmol/L (0.4-2.0) Influenza Type A Antigen Negative (Negative) Influenza Type B Antigen Negative (Negative) SARS-CoV-2 Antigen (Rapid) Negative (NEGATIVE) Troponin I High Sensitivity 33 ng/L (</=54) Test 01/02/25 22:40 01/02/25 22:16 White Blood Count 16.5 10^3/uL (4.4-10.8) Red Blood Count 4.85 10^6/uL (4.5-5.90) Hemoglobin 13.3 g/dL (13.5-17.5) Hematocrit 41.7 % (41.0-53.0) Mean Corpuscular Volume 85.9 fL (80.0-100.0) Mean Corpuscular Hemoglobin 27.4 pg (28.0-32.0) Mean Corpuscular Hemoglobin Concent 31.9 g/dL (32.0-36.0) Red Cell Distribution Width 17.2 % (11.8-14.3) Platelet Count 264 10^3/uL (140-450) Mean Platelet Volume 8.7 fL (6.9-10.8) Neutrophils (%) (Auto) 95.0 % (37.0-80.0) Lymphocytes (%) (Auto) 1.4 % (10.0-50.0) Monocytes (%) (Auto) 3.5 % (0.0-12.0) Eosinophils (%) (Auto) 0.0 % (0.0-7.0) Basophils (%) (Auto) 0.1 % (0.0-2.0) Neutrophils # (Auto) 15.6 10 ^3/uL (1.6-8.6) Lymphocytes # (Auto) 0.2 10 ^3/uL (0.4-5.4) Monocytes # (Auto) 0.6 10 ^3/uL (0-1.3) Eosinophils # (Auto) 0 10 ^3/uL (0-0.8) Basophils # (Auto) 0 10 ^3/uL (0-0.2) Nucleated Red Blood Cells 0.0 % Prothrombin Time 10.6 sec (9.3-11.8) Prothrombin Time INR 1.00 (0.9-1.15) Activated Partial Thromboplast Time 30.1 SEC (24.5-34.5) Sodium Level 138 mmol/L (136-145) Potassium Level 3.3 mmol/L (3.5-5.1) Chloride Level 113 mmol/L (98-107) Carbon Dioxide Level 16 mmol/L (20-31) Anion Gap 9 (5-15) Blood Urea Nitrogen 28 mg/dL (9-23) Creatinine 2.62 mg/dL (0.700-1.30) Glomerular Filtration Rate Calc 25 mL/min (>90) BUN/Creatinine Ratio 10.7 (10.0-20.0) Serum Glucose 114 mg/dL (74-106) Calcium Level 8.6 mg/dL (8.7-10.4) Total Bilirubin 1.2 mg/dL (0.2-1.0) Aspartate Amino Transferase (AST) 267 U/L (13-40) Alanine Aminotransferase (ALT) 205 U/L (7-40) Alkaline Phosphatase 512 U/L (46-116) Total Protein 6.7 g/dL (5.7-8.2) Albumin 3.7 g/dL (3.2-4.8) POC Glucose 127 mg/dl (70-106) Other Laboratory Tests 01/02/25 22:40 Brief Hx & Hospital Course: A 69-year-old male with a complex medical history including coronary artery disease status post PCI, heart failure with reduced ejection fraction, COPD, CKD stage IIIIV, bladder carcinoma post-surgery, and prior abdominal trauma surgery was brought to the emergency department after being found altered and combative in the bathroom for over three hours. On arrival, he was febrile to 103.1F, tachycardic, and hypertensive, with altered mental status and poor recall of events. He endorsed chills and constipation. Initial labs revealed lactic acidosis, transaminitis, hyperbilirubinemia, and hypokalemia. CT imaging showed a 9 mm stone in the distal common bile duct with mild biliary dilation, raising concern for choledocholithiasis and possible cholangitis. Blood cultures later returned positive for gram-negative rods, confirming sepsis. Urinalysis and imaging also suggested a complicated urinary tract infection. The patient was started on IV fluids and broad-spectrum antibiotics (Zosyn), placed NPO, and underwent further imaging including MRCP and abdominal ultrasound, which confirmed biliary obstruction and mild gallbladder wall thickening. Surgical and social service consults were placed. Home medications including aspirin, atorvastatin, and bupropion were resumed, while Entresto and Jardiance were held due to soft blood pressure and sepsis. Renal ultrasound showed bilateral cortical cysts and increased echogenicity, consistent with chronic kidney disease and possible acute kidney injury. Echocardiogram revealed moderately reduced systolic function with EF 3540% and regional wall motion abnormalities. The patient remains under close monitoring for potential ERCP and further evaluation of hepatobiliary and renal pathology. Given the findings and clinical status, the patient was accepted for transfer to [facility] under the care of hospitalist Dr. Cowart and egg tester Connie King. He remains under close monitoring for potential ERCP and further evaluation of hepatobiliary and renal pathology. Physical exam General Appearance: moderate distress, Other (AO x2) HEENT: Atraumatic, PERRLA, EOMI, Other (Dry mucous membranes) Respiratory: Normal air movement Cardiovascular: Normal S1, Normal S2, Other (Tachycardic) Abdominal: Normal bowel sounds, Other (Right upper quadrant tenderness to palpation) Extremities: No edema, Normal pulses Skin: No rashes Neuro: Normal speech Operations or Procedures PATIENT: AMANDA BILLY JR ACCT: [id number] LOC: [facility] U: [id number] AGE/SX: 69/M ROOM: [facility] RE01/03/[address]: KAREN JUDD RESIDENT : 1955 BED: B DIS: STATUS: ADM IN TLOC: - SPEC #: [id number] NORIS: 01/02/25 STATUS: RES REQ #: [id number] RECD: 01/02/[address]: PIERRE SPENCE MD SOURCE: BLOOD ENTR: 01/02/[address] [facility] [address]: SPDESC: ORDERED: BCULT - Procedure Result - Blood Culture Preliminary Report Positive Blood culture - Aerobic bottle & Anaerobic bottle Time to detect: 14 Hr RESULT Gram Negative Rods GRAM STAIN: Called results to JUANPABLO TREJO RN at 1541 on 01/03/25 by PMEISY. Verbal read back confirmed. - PATIENT: AMANDA BILLY JR ACCT: [id number] LOC: [facility] U: [id number] AGE/SX: 69/M ROOM: [facility] RE01/03/[address]: KAREN JUDD RESIDENT : 1955 BED: B DIS: STATUS: ADM IN TLOC: - SPEC #: [id number] NORIS: 01/02/25 STATUS: RES REQ #: [id number] RECD: 01/02/[address]: PIERRE SPENCE MD SOURCE: BLOOD ENTR: 01/02/[address]: SPDESC: ORDERED: BCULT - Procedure Result - Blood Culture Preliminary Report Positive Blood culture - Aerobic bottle & Anaerobic bottle Time to detect: 16 Hr RESULT Gram Negative Rods GRAM STAIN: Called results to JUANPABLO TREJO RN at 1545 on 01/03/25 by [employer]. Verbal read back confirmed. PROCEDURE(s): MRCP - MRCP MRI REASON: CBD STONE ORDER NUMBER(s): [id number], ACCESSION NUMBER(s): [id number] MRI Abdomen, MRCP without IV Contrast Exam Date: 01/03/2025 01:00 PM Comparison: CT dated 01/02/2025 History: CBD STONE Technique: Multisequence multiplanar MRI images were obtained of the [facility]. MRCP including 3D SPACE, Radial 2D slabs and SPACE 3D MIP images Findings: Liver: The liver is normal in size without focal lesions. Normal liver contour. Spleen: Unremarkable. Pancreas: The pancreas is normal in appearance without focal lesions. Gallbladder and ducts: Cholelithiasis noted without secondary findings of cholecystitis or biliary obstruction. Filling defect in the distal common bile duct measures 0.7 cm. The pancreatic duct is within normal limits. Mild intrahepatic biliary duct dilation. Adrenal glands: Unremarkable. Kidneys: Bilateral renal cysts. Visualized bowel: Grossly unremarkable. Vasculature: Unremarkable. Lymphadenopathy: No evidence for lymphadenopathy. Ascites: Absent. Musculoskeletal: Bone marrow signal is normal. IMPRESSION: Cholelithiasis without secondary signs of acute cholecystitis. Mild intrahepatic biliary duct dilation. Mildly dilated common bile duct with 0.7 cm stone in the distal CBD. ERCP could be obtained to further evaluate if clinically indicated. - PROCEDURE(s): ABDC - ABDOMEN COMPLETE SONOGRAM REASON: Evaluate for cholecystitis ORDER NUMBER(s): [id number], ACCESSION NUMBER(s): [id number] Technique: Real-time ultrasound imaging of the abdomen was performed with grayscale and color Doppler. Indication: Evaluate for cholecystitis Comparison: None Findings: Liver measures 19. cm. It is increased in echogenicity and echotexture without focal mass. Portal vein is normal in caliber and demonstrates normal hepatopetal flow. Gallbladder demonstrates cholelithiasis. There is no pericholecystic fluid. The wall thickness is 4 mm. The common bile duct measures 4 mm. No intrahepatic biliary ductal dilatation. The right kidney measures 10.6 cm. The left kidney measures 10.3 cm. No hydronephrosis or sonographic evidence of nephrolithiasis. The visualized portion of the pancreas is unremarkable. Spleen measures 11.4 cm. The visualized portion of the IVC is unremarkable. Impression: Cholelithiasis and mild gallbladder wall thickening which can be seen with cholecystitis. Recommend HIDA scan to further evaluate. Echogenic liver which can be seen with hepatic steatosis, cirrhosis. Hepatomegaly - PROCEDURE(s): CXRP - CHEST PORTABLE REASON: cough, fever ORDER NUMBER(s): [id number], ACCESSION NUMBER(s): [id number] EXAM: XY CHEST PORTABLE CLINICAL HISTORY: cough, fever TECHNIQUE: Single AP view of the chest WID: COMPARISON: None FINDINGS: Lines and tubes: None Chest: The heart size and pulmonary vasculature is within normal limits. Linear bibasilar opacities likely scarring or atelectasis. The lung apices are not entirely included in the field of view. No pneumothorax The osseous structures are grossly intact. IMPRESSION: No acute cardiopulmonary abnormality. PROCEDURE(s): ABPL - CT AB PEL WO CON-NO ORAL OR IV REASON: fever , pain ORDER NUMBER(s): [id number], ACCESSION NUMBER(s): [id number] CLINICAL HISTORY: fever , pain TECHNIQUE: CT of the abdomen and pelvis was performed without intravenous contrast. This exam was performed according to our departmental dose optimization program. Up-to-date CT equipment and radiation dose reduction techniques are utilized as appropriate. 22.7 CTDI: 22.7 DLP: 1510.84 WID: COMPARISON: None FINDINGS: Lower Thorax: Linear bibasilar scarring and/or atelectasis. Normal-sized heart. Partially imaged moderate coronary artery calcifications and mild aortic valve calcifications. Liver and Biliary system: Hepatomegaly measuring 22 cm craniocaudal. Slight limited evaluation of the liver due to streak artifact. No definite hepatic lesion. Gallbladder is mildly dilated though without definite wall thickening. Cholelithiasis. There is choledocholithiasis with a calculus in the distal common bile duct measuring 8.6 mm on series 2, image 51. Dilatation of the common bile duct measuring 1.3 cm. Spleen: Unremarkable. Adrenal Glands and Kidneys: Perinephric soft tissue stranding. There is bilateral urothelial thickening. Mild bilateral pelvicaliectasis. Bilateral renal cortical scarring. There are bilateral renal hypodensities not optimally evaluated without contrast though may reflect cysts. Pancreas and Retroperitoneum: Tiny calcification in the body of the pancreas. Otherwise grossly normal pancreas. Mildly prominent gastrohepatic ligament lymph nodes. No retroperitoneal lymphadenopathy. Prior retroperitoneal lymph node dissection. Aorta and Major Vessels: Aortoiliac vessels are normal in caliber containing mild calcified atherosclerotic plaque. Bowel, Mesentery and Peritoneal space: Normal caliber small and large bowel. Normal appendix. There is no free intraperitoneal air or fluid collection. There is small bowel anastomosis in the lower anterior abdomen. Pelvis: Urinary bladder is mildly distended. There is no pelvic lymphadenopathy. There is bilateral pelvic lymph node dissection. Probable prior prostatectomy. Abdominal wall and Osseous Structures: Tiny fat containing bilateral inguinal hernias and small fat containing umbilical hernia. No destructive osseous lesion. IMPRESSION: There is a 9 mm calculus in the distal common bile duct (choledocholithiasis) with mild dilatation of the common bile duct. This is suggesting biliary obstruction. Correlate with lFTs. Mild dilatation of the gallbladder containing cholelithiasis. No definite gallbladder wall thickening. Perinephric soft tissue stranding, mild bilateral pelvicaliectasis and bilateral urothelial thickening. Correlate with urinalysis to assess for urinary tract infection. No obstructing renal calculus. Small bowel anastomosis in the anterior lower abdomen. Prior prostatectomy and bilateral pelvic and retroperitoneal lymph node dissection. Mild hepatomegaly. - Condition at Discharge: Fair (RN) Final Diagnosis/Problems List # Acute toxic vs metabolic encephalopathy # Possible acute cholecystitis # Choledocholithiasis # Acute cholangitis can not be ruled out # Sepsis due to above # Lactic acidosis # Acute complicated UTI # Hyperbilirubinemia # Transaminitis # Hypokalemia # Chronic heart failure with reduced ejection fraction # Ischemic cardiomyopathy s/p TN with PCI # ALEXANDRE likely hemodynamically mediated/VMN on probable CKD stage 3-4 # Anemia likely of chronic disease # History of bladder cancer s/p surgical intervention # History of a right-sided renal mass # History of depression, likely MDD Discharge Disposition: Acute Care Facility Discharge Instruct/Medications Diet: Cardiac 2g Na,low cholest Activity: No Restrictions, As Tolerated Follow Up/Referral: Follow up with PCP within 1-2 weeks. Medications: continue home medications as per EMR Scheduled Aspirin (Aspirin Low Dose), 1 TAB PO DAILY, (Reported) Atorvastatin Calcium (Atorvastatin Calcium), 1 TAB PO DAILY, (Reported) Bupropion Hcl (Bupropion Hcl Xl), 1 TAB PO BID, (Reported) Empagliflozin (Jardiance), 1 TAB PO DAILY, (Reported) Ergocalciferol (Vitamin D), 1 CAP PO QWEEKLY, (Reported) Discharge Statement: "Patient was advised to return to the ER or call 911 if any headaches, dizziness, shortness of breath, chest pain, abdominal pain, bleeding, fevers, or worsening of medical condition. Patient was counseled about treatment plan, medications, possible side effects, patientverbalized understanding. All questions were answered to the best of my ability. This discharge took greater then 30 minutes in planning, reviewing documentation, counseling the patient, and discussing with other team members." ASSESSMENT ASSESSMENT Assessment # Acute toxic vs metabolic encephalopathy # Possible acute cholecystitis # Choledocholithiasis # Acute cholangitis can not be ruled out # Sepsis due to above # Lactic acidosis # Acute complicated UTI # Hyperbilirubinemia # Transaminitis # Hypokalemia # Chronic heart failure with reduced ejection fraction # Ischemic cardiomyopathy s/p TN with PCI # ALEXANDRE likely hemodynamically mediated/VMN on probable CKD stage 3-4 # Anemia likely of chronic disease # History of bladder cancer s/p surgical intervention # History of a right-sided renal mass # History of depression, likely MDD Date of Service: Jan 03, 2025 Billing Provider: ISSAC HURST MD Common Visit Codes: 30726-MDQ/OBS SAME DATE (HIGH) TEDDY WALTERS Jan 03, 2025 14:04 ISSAC HURST MD Jan 06, 2025 14:30
[2025-01-03] MEDS: SODIUM CHLORIDE 0.9% 1,000 ML IV SCH (14:45)
[2025-01-03] MEDS: MORPHINE SULFATE INJ 2 MG/ml SYRG IV PRN (16:47)
[2025-01-03] MEDS: ATORVASTATIN 20 MG TAB PO SCH (22:00)
[2025-01-03 22:53] LABS: Albumin 4.2 g/dL (3.2-4.8); Anion Gap 8 (5-15); BUN/Creatinine Ratio 12.2 (10.0-20.0); Calcium 8.8 mg/dL (8.7-10.4); Potassium 4.8 mmol/L (3.5-5.1); Total Protein 7.5 g/dL (5.7-8.2)
[2025-01-03 22:54] LABS: Bilirubin, Total 0.8 mg/dL (0.2-1.0)
[2025-01-03 22:55] LABS: Alanine Aminotransferase 183 U/L (7-40); Alkaline Phosphatase 371 U/L (46-116); Blood Urea Nitrogen 35 mg/dL (9-23); Carbon Dioxide 15 mmol/L (20-31); Chloride 111 mmol/L (98-107); Glucose 71 mg/dL (74-106); Sodium 134 mmol/L (136-145)
[2025-01-04 05:00] VITALS: BP 105/61; PULSE 67; RESP 18; TEMP 98.6; O2SAT 96
[2025-01-04 08:00] VITALS: PULSE 64
[2025-01-04 09:00] VITALS: BP 112/66; PULSE 64; RESP 17; TEMP 97.9; O2SAT 97
[2025-01-04 09:39] VITALS: BP 119/72; PULSE 64; RESP 18
[2025-01-04] MEDS: SODIUM CHLORIDE 0.9% 500 ML IV ONE (11:23)
--- NOTE | 2025-01-04 15:45 | DVHPNRES ---
Progress Note Date Seen: Jan 04, 2025 Resident Creating Document: TEDDY WALTERS Medical Necessity Reason Pt with a Central, PICC or Fol: No (RN) Subjective Review of Systems A 69-year-old male with a complex medical history including coronary artery disease status post PCI, heart failure with reduced ejection fraction, COPD, CKD stage IIIIV, bladder carcinoma post-surgery, and prior abdominal trauma surgery was brought to the emergency department after being found altered and combative in the bathroom for over three hours. On arrival, he was febrile to 103.1F, tachycardic, and hypertensive, with altered mental status and poor recall of events. He endorsed chills and constipation. Initial labs revealed lactic acidosis, transaminitis, hyperbilirubinemia, and hypokalemia. CT imaging showed a 9 mm stone in the distal common bile duct with mild biliary dilation, raising concern for choledocholithiasis and possible cholangitis. Blood cultures later returned positive for gram-negative rods, confirming sepsis. Urinalysis and imaging also suggested a complicated urinary tract infection. The patient was started on IV fluids and broad-spectrum antibiotics (Zosyn), placed NPO, and underwent further imaging including MRCP and abdominal ultrasound, which confirmed biliary obstruction and mild gallbladder wall thickening. Surgical and social service consults were placed. Home medications including aspirin, atorvastatin, and bupropion were resumed, while Entresto and Jardiance were held due to soft blood pressure and sepsis. Renal ultrasound showed bilateral cortical cysts and increased echogenicity, consistent with chronic kidney disease and possible acute kidney injury. Echocardiogram revealed moderately reduced systolic function with EF 3540% and regional wall motion abnormalities. The patient remains under close monitoring for potential ERCP and further evaluation of hepatobiliary and renal pathology. The patient was accepted for transfer to [facility] (Bed 221A). However, transport was delayed due to lack of IV access, as [facility] required a functional IV line prior to transfer. Multiple staff members, including the resource nurse, warehouse insulation worker, and charge nurse, attempted IV placement without success. The patient was placed on will-call status until IV access could be re-established. Despite the IV access issue, the patient remained hemodynamically stable throughout the evening, with blood pressures ranging from 93/65 to 122/73. [facility] was re-notified once vitals stabilized, and an updated ETA of 6090 minutes was received. On evaluation today, he states he complains with abdominal pain. His vitals have remained stable for transfer to [facility]. All medications and recommendations were thoroughly explained and the patient states he understands and agrees. Detailed discussion held with patient at bedside were all questions were answered and concerns were addressed. Objective vital signs Vital Sign Date Time Temp Pulse Resp B/P (MAP) Pulse Ox O2 Delivery O2 Flow Rate FiO2 01/04/25 09:39 64 18 119/72 01/04/25 09:00 97.9 97 97.9 01/04/25 08:00 Nasal Cannula* 2 28 Total Intake and Output 01/03/25 01/03/25 01/04/25 15:00 23:00 07:00 Intake Total 50 ml 620 ml 0 ml Output Total 800 ml 800 ml Balance 50 ml -180 ml -800 ml Examination Physical exam General Appearance: moderate distress, Other (AO x2) HEENT: Atraumatic, PERRLA, EOMI, Other (Dry mucous membranes) Respiratory: Normal air movement Cardiovascular: Normal S1, Normal S2, Other (Tachycardic) Abdominal: Normal bowel sounds, Other (Right upper quadrant tenderness to palpation) Extremities: No edema, Normal pulses Skin: No rashes Neuro: Normal speech laboratory and microbiology Laboratory Tests 01/03/25 21:46 01/02/25 22:40 Test 01/03/25 21:46 Range/Units Serum Glucose 71 L 74-106 mg/dL Microbiology Date/Time Source Procedure Growth Status 01/03/25 02:21 Voided Urine Urine Culture - Preliminary Resulted 01/02/25 22:40 Blood Blood Culture - Preliminary Resulted Labs and/or images reviewed: Labs reviewed by me, Image(s) reviewed by me Problem List/Assessment/Plan Problem List/Assessment/Plan Acute toxic vs metabolic encephalopathy Possible acute cholecystitis Choledocholithiasis Acute cholangitis can not be ruled out Sepsis due to above Lactic acidosis Acute complicated UTI - CT abdomen pelvis: There is a 9 mm calculus in the distal common bile duct (choledocholithiasis) with mild dilatation of the common bile duct. This is suggesting biliary obstruction. Correlate with lFTs. Mild dilatation of the gallbladder containing cholelithiasis. No definite gallbladder wall thickening. Perinephric soft tissue stranding, mild bilateral pelvicaliectasis and bilateral urothelial thickening. Correlate with urinalysis to assess for urinary tract infection. No obstructing renal calculus. Small bowel anastomosis in the anterior lower abdomen. Prior prostatectomy and bilateral pelvic and retroperitoneal lymph node dissection. Mild hepatomegaly. - CXR: No acute cardiopulmonary disease - MRCP: Cholelithiasis without secondary signs of acute cholecystitis. Mild intrahepatic biliary duct dilation. Mildly dilated common bile duct with 0.7 cm stone in the distal CBD. ERCP could be obtained to further evaluate if clinically indicated. - Abdomen US: Cholelithiasis and mild gallbladder wall thickening which can be seen with cholecystitis. Recommend HIDA scan to further evaluate. Echogenic liver which can be seen with hepatic steatosis, cirrhosis. Hepatomegaly - IV NS 1 L bolus, IV NS at 100 cc per hour - IV Zosyn - surgical consult - social service consult - NPO - ordered blood culture, urine culture Hyperbilirubinemia Transaminitis - ordered abdominal ultrasound - monitor Hypokalemia - IV potassium 20 mEq once Chronic heart failure with reduced ejection fraction Ischemic cardiomyopathy s/p HI with PCI - echocardiogram from August 2024: TDS. Limited views. Normal LV size with moderately reduced systolic function. LVEF 35-40%. Enx-[id number] anteroseptal and apical hypokinesis, with basal segment hyperkinesis. No pericardial effusion - resumed home medication aspirin 81 mg - resumed home medication atorvastatin 40 mg - holding home medication Entresto and Jardiance owing to soft blood pressure and sepsis ALEXANDRE likely hemodynamically mediated/VMN on probable CKD stage 3-4 Anemia likely of chronic disease History of bladder cancer s/p surgical intervention History of a right-sided renal mass - renal ultrasound from September 2024: Right kidney measures 10.88 cm. Left kidney measures 10.46 cm. Increased echogenicity of the renal cortex bilaterally. Multiple anechoic masses in the cortex of both kidneys largest on the right measures 3.2 by 2.9 cm. Largest on the left measures 2.45 x 2.26 cm. Nichols catheter in the bladder in the bladder is empty. - monitor History of depression, likely MDD - resumed home medication bupropion 150 mg b.i.d. DVT prophylaxis: Heparin 5000 units b.i.d. Goals of care: Full code; attempted to call daughter at [phone] around 2:58 a.m. however no response, we will re-attempt to call in the morning. Plan discussed with Dr. Midou Plan discussed with: Patient (RN) My Orders My Orders Orders - TEDDY WALTERS Procedure Category Date Status Time Discharge DISCHARGE 01/04/25 Transmitted 10:12 Date of Service: Jan 04, 2025 Billing Provider: HOLGER CERVANTES MD Common Visit Codes: [id number] INP/OBS CARE(HIGH) TEDDY WALTERS Jan 04, 2025 15:45 HOLGER CERVANTES MD Jan 05, 2025 19:38
--- NOTE | 2025-01-05 10:52 | ECG ---
[facility] Test Date: 2025-01-02 Test Time: 22:10:17 Pat Name: AMANDA BILLY Department: ER Room: [facility] Gender: M Board Worker: MANJULA : 1955 Requested By: PIERRE SPENCE Order Number: [id number] Reading MD: Bogdan Carreno Measurements Intervals [place] Rate: 119 P: 27 CO: 167 QRS: -77 QRSD: 99 T: 39 QT: 331 QTc: 466 Interpretive Statements Sinus tachycardia Inferior infarct, old Baseline wander in lead(s) V2 Electronically Signed On 01-05-2025 22:58:11 PDT by Bogdan Carreno Please click the below link to view image of tracing.
== END 2025-01-04 13:31 | disposition short-term general hospital (02) | DRG 871 ==
LOC: EDBD 21:21 → ER 21:21 → OVERFLOW 01-03 02:21 → TELE-WESTW 01-03 03:45
PROVIDERS: ADMIT Internal Medicine Geriatric Medicine; ATTEND Internal Medicine Geriatric Medicine
DX: A41.9 Sepsis, unspecified organism (principal); G92.8 Other toxic encephalopathy; N17.0 Acute kidney failure with tubular necrosis; E87.20 Acidosis, unspecified; N39.0 Urinary tract infection, site not specified; K80.42 Calculus of bile duct with acute cholecystitis without obstruction; N18.4 Chronic kidney disease, stage 4 (severe); I50.22 Chronic systolic (congestive) heart failure; E80.6 Other disorders of bilirubin metabolism; E87.6 Hypokalemia; Z20.822 Contact with and (suspected) exposure to COVID-19; I25.5 Ischemic cardiomyopathy; D64.9 Anemia, unspecified; F32.9 Major depressive disorder, single episode, unspecified; N28.89 Other specified disorders of kidney and ureter; D63.8 Anemia in other chronic diseases classified elsewhere; R74.01 Elevation of levels of liver transaminase levels; Z85.51 Personal history of malignant neoplasm of bladder
CPT/HCPCS: 36415; 71045; 74176; 74181; 76700; 80053; 81001; 82962; 83605; 84484; 85025; 85610; 85730; 87040; 87077; 87086; 87088; 87186; 87426; 87804; 93005; 96365; 96375; 99291; G0378; J0131; J2543; J3480